=== PATIENT | female | born 1980 | race Two or more races ===

== ENCOUNTER 2018-10-30 08:28 | Observation (INO) | payer MEDICAID ==
[~2018-10-30] VITALS: Ht 157.5 cm; Wt 99.3 kg
[~2018-10-30 08:28] MED LIST: PREN-153 OR
[2018-10-30 09:19] LABS: Basophils # (auto) 0 uL; Basophils % (auto) 0.5 % (0.0-2.0); Eosinophils # (auto) 0.1 uL; Eosinophils % (auto) 0.9 % (0.0-7.0); Hematocrit 34.3 % (36.0-46.0); Hemoglobin 11.3 g/dL (12.2-16.2); Lymphocytes # (auto) 1.8 uL; Lymphocytes % (auto) 23.6 % (10.0-50.0); Mean Corpuscular Hemoglobin 27.3 pg (28.0-32.0); Mean Corpuscular Volume 82.7 fL (80.0-100.0); Monocytes # (auto) 0.4 uL; Monocytes % (auto) 5.1 % (0.0-12.0); Neutrophils # (auto) 5.2 uL; Neutrophils % (auto) 69.9 % (37.0-80.0); Nucleated Red Blood Cells % 0.1 %; Platelet Count (auto) 202 10^3/uL (140-450); Red Blood Cells 4.15 10^6/uL (4.0-5.20); Red Cell Distribution Width 14.7 % (11.8-14.3); White Blood Cell 7.5 10^3/uL (4.4-10.8)
[2018-10-30 09:31] LABS: Albumin 2.6 g/dL (3.4-5.0); BUN/Creatinine Ratio 20.7; Calcium 8.5 mg/dL (8.5-10.1); Potassium 3.7 mmol/L (3.5-5.1)
[2018-10-30 09:33] LABS: Bilirubin, Total 0.3 mg/dL (0.2-1.0); Total Protein 7.3 g/dL (6.4-8.2)
[2018-10-30 10:58] LABS: Urine Bacteria FEW /hpf (None Seen); Urine Blood Negative /uL (Negative); Urine Specific Gravity 1.009 (1.001-1.035); Urine WBC 8 /hpf (0 - 5)
== END 2018-10-30 10:35 | disposition home or self-care (01) | DRG 566 ==
LOC: LDRP 08:28
PROVIDERS: ADMIT Obstetrics & Gynecology; ATTEND Obstetrics & Gynecology
DX: O24.419 Gestational diabetes mellitus in pregnancy, unspecified control (principal); O09.523 Supervision of elderly multigravida, third trimester; O40.3XX0 Polyhydramnios, third trimester, not applicable or unspecified; Z3A.34 34 weeks gestation of pregnancy
CPT/HCPCS: 36415; 59025; 76818; 80053; 81001; 81002; 82948; 82962; 85025; G0378

== ENCOUNTER 2018-11-06 10:10 | Observation (INO) | payer MEDICAID ==
[2018-11-06 11:08] LABS: Basophils # (auto) 0 uL; Basophils % (auto) 0.4 % (0.0-2.0); Eosinophils # (auto) 0.1 uL; Eosinophils % (auto) 0.7 % (0.0-7.0); Hematocrit 33.8 % (36.0-46.0); Hemoglobin 11.3 g/dL (12.2-16.2); Lymphocytes # (auto) 1.6 uL; Lymphocytes % (auto) 21.4 % (10.0-50.0); Mean Corpuscular Hgb Conc. 33.3 g/dL (32.0-36.0); Mean Corpuscular Volume 81.1 fL (80.0-100.0); Monocytes # (auto) 0.4 uL; Monocytes % (auto) 5.7 % (0.0-12.0); Neutrophils # (auto) 5.5 uL; Neutrophils % (auto) 71.8 % (37.0-80.0); Nucleated Red Blood Cells % 0.1 %; Platelet Count (auto) 217 10^3/uL (140-450); Red Blood Cells 4.17 10^6/uL (4.0-5.20); Red Cell Distribution Width 14.5 % (11.8-14.3); White Blood Cell 7.6 10^3/uL (4.4-10.8)
[2018-11-07 07:06] LABS: RPR Non Reactive (Non Reactive)
== END 2018-11-06 12:15 | disposition home or self-care (01) | DRG 566 ==
LOC: LDRP 10:10
PROVIDERS: ADMIT Specialist; ATTEND Specialist
DX: O26.613 Liver and biliary tract disorders in pregnancy, third trimester (principal); K83.1 Obstruction of bile duct; O09.523 Supervision of elderly multigravida, third trimester; Z3A.35 35 weeks gestation of pregnancy
CPT/HCPCS: 36415; 59025; 76818; 81002; 84112; 85025; 86592; G0378

== ENCOUNTER → 2018-11-06 | Outpatient (CLI) | payer MEDICAID | END | disposition home or self-care (01) | LOC: LAB 14:19 | PROVIDERS: ATTEND Obstetrics & Gynecology | DX: O23.593 Infection of other part of genital tract in pregnancy, third trimester (principal); Z11.3 Encounter for screening for infections with a predominantly sexual mode of transmission; Z3A.35 35 weeks gestation of pregnancy | CPT/HCPCS: 87081 ==

== ENCOUNTER 2018-11-13 09:23 | Observation (INO) | payer MEDICAID ==
[2018-11-13] MEDS ORDERED: URSO300C9 PO (10:02)
== END 2018-11-13 11:10 | disposition home or self-care (01) | DRG 566 ==
LOC: LDRP 09:23
PROVIDERS: ADMIT Specialist; ATTEND Specialist
DX: O24.419 Gestational diabetes mellitus in pregnancy, unspecified control (principal); K83.1 Obstruction of bile duct; O09.523 Supervision of elderly multigravida, third trimester; O40.3XX0 Polyhydramnios, third trimester, not applicable or unspecified; O26.613 Liver and biliary tract disorders in pregnancy, third trimester; Z3A.36 36 weeks gestation of pregnancy
CPT/HCPCS: 59025; 76818; 81002; 82948; 82962; G0378

== ENCOUNTER 2018-11-19 09:29 | Observation (INO) | payer MEDICAID ==
[~2018-11-19] VITALS: Ht 142.2 cm; Wt 86.2 kg
[~2018-11-19 09:29] MED LIST changes: +URSO300C9 PO
== END 2018-11-19 12:45 | disposition home or self-care (01) | DRG 566 ==
LOC: LDRP 09:29
PROVIDERS: ADMIT Obstetrics & Gynecology; ATTEND Obstetrics & Gynecology
DX: O26.613 Liver and biliary tract disorders in pregnancy, third trimester (principal); K83.1 Obstruction of bile duct; Z3A.37 37 weeks gestation of pregnancy; O24.419 Gestational diabetes mellitus in pregnancy, unspecified control
CPT/HCPCS: 59025; 76818; 81002; 82948; 82962; G0378

== ENCOUNTER 2018-11-23 13:55 | Observation (INO) | payer MEDICAID | END 2018-11-23 15:40 | disposition home or self-care (01) | DRG 566 | LOC: LDRP 13:55 | PROVIDERS: ADMIT Specialist; ATTEND Specialist | DX: O26.613 Liver and biliary tract disorders in pregnancy, third trimester (principal); K83.1 Obstruction of bile duct; O24.419 Gestational diabetes mellitus in pregnancy, unspecified control; Z3A.37 37 weeks gestation of pregnancy | CPT/HCPCS: 59025; 76818; 81002; 82948; 82962; G0378 ==

== ENCOUNTER 2018-11-26 09:50 | Observation (INO) | payer MEDICAID | END 2018-11-26 12:45 | disposition home or self-care (01) | DRG 566 | LOC: LDRP 09:50 | PROVIDERS: ADMIT Obstetrics & Gynecology; ATTEND Obstetrics & Gynecology | DX: O26.619 Liver and biliary tract disorders in pregnancy, unspecified trimester (principal); K83.1 Obstruction of bile duct; O24.419 Gestational diabetes mellitus in pregnancy, unspecified control; O09.529 Supervision of elderly multigravida, unspecified trimester; Z3A.00 Weeks of gestation of pregnancy not specified | CPT/HCPCS: 59025; 76818; 81002; 82948; 82962; G0378 ==

== ENCOUNTER 2018-11-28 23:21 | Inpatient (IN) | payer MEDICAID | END 2018-11-30 15:55 | disposition home or self-care (01) | LOC: LDRP 23:21 | PROC: 10E0XZZ Delivery of Products of Conception, External Approach (ICD-10-PCS; principal; ~2018-11-28) | DX: O80 Encounter for full-term uncomplicated delivery (principal); K83.1 Obstruction of bile duct; Z37.0 Single live birth; Z3A.39 39 weeks gestation of pregnancy; O26.62 Liver and biliary tract disorders in childbirth; Z86.32 Personal history of gestational diabetes ==